=== PATIENT | female | born 1975 ===

== ENCOUNTER 2018-03-18 08:27 | Day surgery (SDC) | payer OTHER ==
[~2018-03-18] VITALS: Ht 162.6 cm; Wt 79.8 kg
[~2018-03-18 08:27] MED LIST: GNP NORWEGIAN1 EACH PO; MULTI FOR HER1 EAC2 PO; VIT C-ROSE HIP500 MG PO; ZYRTEC10 M3 PO
== END 2018-03-19 08:00 | disposition home or self-care (01) ==
LOC: CIR.AMB 08:27 → SURH 19:16 → CIR.AMB 19:16 → SURH 03-19 12:40
DX: E65 Localized adiposity (principal); N65.1 Disproportion of reconstructed breast